=== PATIENT | male | born 1980 | race Caucasian/White ===

== ENCOUNTER 2021-12-14 03:52 | Emergency (ER) | payer SELFPAY ==
[~2021-12-14] VITALS: Ht 177.8 cm; Wt 98.0 kg
[2021-12-14] MEDS ORDERED: SUMATRIPTAN SUCCINATE 6MG/0.5ML VIAL SUBCUT ONE (04:30)
[2021-12-14 05:45] VITALS: BP 133/74
[2021-12-14] MEDS ORDERED: SUMA6CAR SQ (05:59)
[2021-12-14] MEDS ORDERED: MED4 MT (05:59)
== END 2021-12-14 06:06 | disposition home or self-care (01) ==
LOC: ER 03:52
DX: G44.009 Cluster headache syndrome, unspecified, not intractable (principal)
CPT/HCPCS: 96372; 99283; J3030